=== PATIENT | female | born 1950 | race Caucasian/White ===

== ENCOUNTER 2018-11-23 12:11 | Outpatient (CLI) | payer MEDICARE, MEDICAID | END 2018-11-23 23:59 | disposition home or self-care (01) | LOC: RAD 12:11 | PROVIDERS: ATTEND Surgery | DX: Z01.810 Encounter for preprocedural cardiovascular examination (principal) | CPT/HCPCS: 71046 ==

== ENCOUNTER 2019-12-02 12:34 | Outpatient (CLI) | payer MEDICARE, MEDICAID | END 2019-12-02 23:59 | disposition home or self-care (01) | LOC: RAD 12:34 | PROVIDERS: ATTEND Surgery | DX: Z01.818 Encounter for other preprocedural examination (principal); M43.8X4 Other specified deforming dorsopathies, thoracic region | CPT/HCPCS: 71046 ==